=== PATIENT | male | born 2000 | race Caucasian/White ===

== ENCOUNTER 2020-10-07 21:51 | Emergency (ER) | payer SELFPAY ==
[2020-10-07] MEDS ORDERED: PENICILLIN G BENZATHINE 1.2 MILLION UNIT/2 ML DISP.SYRIN IM ONE (22:08)
[2020-10-07] MEDS ORDERED: AZITHROMYCIN 250 MG TABLET PO ONE (22:14)
[2020-10-07] MEDS ORDERED: CEFTRIAXONE INJ 250 MG VIAL IM ONE (22:14)
[2020-10-07] MEDS ORDERED: LIDOCAINE 1% INJ-PF (10 MG/ML) 30 ML SDV INJ ONE (22:14)
--- NOTE | 2020-10-07 22:18 | ER Document Report ---
ED GI/ - General Chief Complaint: STD Exposure Stated Complaint: POSS STD Time Seen by Provider: 10/07/20 22:07 Mode of Arrival: Ambulatory Information source: Patient Notes: 19-year-old male presented to ED for complaint of positive syphilis test when he donated blood. He states he was just told a couple days ago. He states he has had no rashes no soreness to his genitalia but he has had fatigue. He states he would also like to be tested for gonorrhea and chlamydia. He states he would like to be treated for those as well. He states he does have a history of depression and takes medications for the depression and hormone treatment to change from male to female. He states he has not yet had the surgery. He is alert oriented respirations regular nonlabored speaking in full sentences. He states he does smoke 1/2 pack a day does not drink or use any illicit drugs. Constitutional: Negative for fever. HENT: Negative for sore throat. Eyes: Negative for visual changes. Cardiovascular: Negative for chest pain. Respiratory: Negative for shortness of breath. Gastrointestinal: Negative for abdominal pain, vomiting or diarrhea. Genitourinary: Negative for dysuria. He states he is not having any urinary symptoms he is not having any discharge she is not having any sores or rash but the blood bank told him that he was positive for syphilis when they tested his blood that he donated. Musculoskeletal: Negative for back pain. Skin: Negative for rash. Neurological: Negative for headaches, weakness or numbness. 10 point ROS negative except as marked above and in HPI. PHYSICAL EXAMINATION: GENERAL: Well-appearing, well-nourished and in no acute distress. HEAD: Atraumatic, normocephalic. EYES: Pupils equal round extraocular movements intact, conjunctiva are normal. ENT: Nares patent NECK: Normal range of motion LUNGS: No respiratory distress Musculoskeletal: Normal range of motion NEUROLOGICAL: Normal speech, normal gait. PSYCH: Normal mood, normal affect. SKIN: Warm, Dry, normal turgor, no rashes or lesions noted. - HPI Patient complains to provider of: Other - States he was told by the blood bank he was positive for syphilis and wants to be treated and tested for other STDs Onset: Other - Couple days ago Quality of pain: No pain Pain Level: Denies Sexual history: Unprotected intercourse, Rectal penetration Associated symptoms: Other - States he was told he was positive for syphilis and wants to be tested for and treated for gonorrhea and chlamydia Exacerbated by: Denies Relieved by: Denies Similar symptoms previously: No Recently seen / treated by doctor: No - Related Data Allergies/Adverse Reactions: No Known Allergies Allergy (Unverified 10/07/20 22:05) Home Medications: states medication for depression, anxiety, and hormones for transgender Past Medical History - General Information source: Patient - Social History Smoking Status: Current Every Day Smoker Cigarette use (# per day): Yes - Half pack per day Smoking Education Provided: Yes - 3 minutes Frequency of alcohol use: None Drug Abuse: None Family History: Reviewed & Not Pertinent Patient has homicidal ideation: No - Past Medical History Cardiac Medical History: Reports: None Pulmonary Medical History: Reports: None EENT Medical History: Reports: None Neurological Medical History: Reports: None Endocrine Medical History: Reports: None Renal/ Medical History: Reports: None Malignancy Medical History: Reports None GI Medical History: Reports: None Musculoskeletal Medical History: Reports None Skin Medical History: Reports None Psychiatric Medical History: Reports: Hx Depression Traumatic Medical History: Reports: None Infectious Medical History: Reports: None Surgical Hx: Negative Past Surgical History: Reports: None Physical Exam - Vital signs Vitals: Temp Pulse Resp BP Pulse Ox 98.8 F 108 H 16 129/65 H 96 10/07/20 21:59 10/07/20 21:59 10/07/20 21:59 10/07/20 21:59 10/07/20 21:59 Course - Re-evaluation Re-evalutation: 10/08/20 00:32 Patient was treated with 2,400,000 units of penicillin G Cynthia benzathine IM for his positive test for syphilis at the blood bank. He stated that they told him that he needed to be treated right away. We also tested him for gonorrhea and chlamydia. His UA was negative for any acute UTI but it was sent for culture to ensure that everything is covered. He was instructed to call on Saturday for the results of his gonorrhea and chlamydia. Patient verbalized understanding and agreement with treatment plan and when he was discharged home. 10/08/20 00:33 - Vital Signs Vital signs: Temp Pulse Resp BP Pulse Ox 98.8 F 108 H 16 129/65 H 96 10/07/20 21:59 10/07/20 21:59 10/07/20 21:59 10/07/20 21:59 10/07/20 21:59 - Laboratory Laboratory results interpreted by me: 10/07/20 22:31 Urine Protein 30 H Urine Ketones TRACE H Urine Urobilinogen 4.0 H Ur Leukocyte Esterase TRACE H Discharge - Discharge Clinical Impression: Syphilis in male, STD exposure Condition: Stable Disposition: HOME, SELF-CARE Additional Instructions: You presented to ED today for a positive syphilis at the blood bank. You have been treated with penicillin G 2,400,000 units as per protocol for syphilis. You also requested that she be tested for GC and chlamydia. These take about 2 to 3 hours to run so you have been treated for these as well while you were here. You can call for the results of these tests on Saturday at [id number] the culture line. Have already been treated at this time. Penicillins The antibiotic you have received is a member of the penicillin family. This is a very useful class of antibiotics. The particular type of antibiotic chosen for you was determined by the nature of your problem. Penicillins are absorbed best when taken on an empty stomach, and should be taken either a half hour before or two hours after a meal. Some newer medicines of the penicillin class are better taken with food -- if this is the case, the pharmacist will label the medicine to alert you. Penicillins usually have no side effects. However, allergy to penicillins is common. If you have had an allergic reaction to any drug of the penicillin family, you should never take any other penicillin. Notify your doctor at once if you develop hives, itching, swelling, faintness, or shortness of breath. Less serious side effects can include nausea or diarrhea. Rocephin You have been given an injection of an antibiotic called Rocephin (ceftriaxone). Sometimes the injection must be combined with antibiotic pills. For some infections, such as an uncomplicated ear infection, Rocephin provides all the antibiotic that's needed. The antibiotic will be in your body for about two days. For serious infections, we usually repeat doses of Rocephin daily. Side effects are very unusual following a shot. Women may develop vaginal yeast infections, and babies can get yeast (thrush) in the mouth following the use of antibiotics. Contact your physician if you have symptoms with this medication. Allergy to this antibiotic can result in hives, wheezing, faintness, or itching. If symptoms of allergy occur, call the doctor at once. Azithromycin Azithromycin (Zithromax) is a broad spectrum antibiotic in the same class as erythromycin. It can treat a variety of bacterial infections, but is most frequently used for respiratory infections. Azithromycin is extremely long-lasting. It accumulates in body tissues and continues to kill bacteria for many days. In order to improve absorption, Azithromycin should be taken at least one hour before or two hours after a meal. It does not have the same strong tendency to upset the stomach as erythromycin and is usually very well tolerated. Patients who have had a rash or other true allergic reactions to erythromycin should not take this medication. Call if you develop gastrointestinal distress, severe diarrhea, rash, hives, itching, or shortness of breath. It is very important that you follow-up with a urologist to make sure that you are clear from your syphilis. FOLLOW-UP CARE: If you have been referred to a physician for follow-up care, call the physicians office for an appointment as you were instructed or within the next two days. If you experience worsening or a significant change in your symptoms, notify the physician immediately or return to the Emergency Department at any time for re-evaluation. Forms: Smoking Cessation Education Referrals: PERRY BRAVO MD [NO LOCAL MD] - Follow up as needed
[2020-10-07 23:55] LABS: APPEARANCE,URINE SLIGHTLY-CLOUDY; BILIRUBIN,URINE NEGATIVE (NEGATIVE); COLOR,URINE YELLOW; GLUCOSE, URINE NEGATIVE (NEGATIVE); KETONES,URINE TRACE mg/dL (NEGATIVE); LEUKOCYTE ESTERASE,URINE TRACE (NEGATIVE); NITRITE,URINE NEGATIVE (NEGATIVE); PROTEIN,URINE 30 mg/dL (NEGATIVE)
[2020-10-08 00:16] LABS: CHLAM PCR NOT DETECTED (NOT DETECT)
[2020-10-08 00:26] VITALS: BP 133/81
== END 2020-10-08 00:27 | disposition home or self-care (01) ==
LOC: ER 21:51
DX: A53.9 Syphilis, unspecified (principal); R53.83 Other fatigue; F17.210 Nicotine dependence, cigarettes, uncomplicated; F32.9 Major depressive disorder, single episode, unspecified; Z79.899 Other long term (current) drug therapy; Z20.2 Contact with and (suspected) exposure to infections with a predominantly sexual mode of transmission
CPT/HCPCS: 99284; 96372; 87086; 81001; 87491; 87591; J3490; J0561; J0696

== ENCOUNTER 2020-10-11 21:44 | Emergency (ER) | payer MEDICAID, OTHER ==
--- NOTE | 2020-10-11 22:24 | ER Document Report ---
ED Medical Screen (RME) - General Chief Complaint: Suicidal Ideation Stated Complaint: PSYCH Time Seen by Provider: 10/11/20 22:14 Notes: HPI: 19-year-old male presenting for suicidal ideation tonight. No new stressors. Patient states that he had thoughts of putting an extension cord around his throat and hanging himself. States 5 months ago he was seen for something similar and had exact same plan. Denies drugs or alcohol use. PHYSICAL EXAMINATION: Patient does make eye contact and is willing to interact. He does espouse active thoughts of harming himself. Lung sounds are clear to auscultation regular rate and rhythm I have greeted and performed a rapid initial assessment of this patient. A comprehensive ED assessment and evaluation of the patient, analysis of test results and completion of medical decision making process will be conducted by an additional ED providers. - Related Data Allergies/Adverse Reactions: No Known Allergies Allergy (Verified 10/09/20 22:57) Past Medical History - Social History Frequency of alcohol use: None Drug Abuse: None - Past Medical History Cardiac Medical History: Reports: Hx Hypertension Neurological Medical History: Reports: Hx Seizures Psychiatric Medical History: Reports: Hx Anxiety, Hx Depression, Hx Schizophrenia Physical Exam - Vital signs Vitals: Temp Pulse Resp BP Pulse Ox 98.0 F 92 16 145/76 H 95 10/11/20 22:10 10/11/20 22:10 10/11/20 22:10 10/11/20 22:10 10/11/20 22:10 Course - Vital Signs Vital signs: Temp Pulse Resp BP Pulse Ox 98.0 F 92 16 145/76 H 95 10/11/20 22:10 10/11/20 22:10 10/11/20 22:10 10/11/20 22:10 10/11/20 22:10
[2020-10-11 23:04] LABS: ABSOLUTE BASOPHILS # (AUTO) 0.1 10^3/uL (0.0-0.2); ABSOLUTE EOSINOPHILS # (AUTO) 0.4 10^3/uL (0.0-0.6); ABSOLUTE LYMPHOCYTES (AUTO) 3.2 10^3/uL (0.5-4.7); ABSOLUTE MONOCYTES (AUTO) 0.9 10^3/uL (0.1-1.4); ABSOLUTE NEUT (AUTO) 9.4 10^3/uL (1.7-8.2); BASOPHILS % (AUTO) 0.9 % (0-2); EOSINOPHILS % (AUTO) 2.6 % (0-6); HEMATOCRIT 47.8 % (37.9-51.0); LYMPHOCYTES % (AUTO) 22.9 % (13-45); MEAN CORPUSCULAR HEMOGLOBIN 29.1 pg (27.0-33.4); MEAN CORPUSCULAR HGB CONC 33.5 g/dL (32.0-36.0); MEAN CORPUSCULAR VOLUME 87 fl (80-97); MONOCYTES % (AUTO) 6.4 % (3-13); PLATELET COUNT 168 10^3/uL (150-450); RED BLOOD COUNT 5.49 10^6/uL (4.35-5.55); RED CELL DISTRIBUTION WIDTH 12.9 % (11.5-14.0); SEGMENTED NEUTROPHILS % (AUTO) 67.2 % (42-78); TOTAL CELLS COUNTED % (AUTO) 100 %
[2020-10-11 23:10] LABS: APPEARANCE,URINE CLEAR; BILIRUBIN,URINE NEGATIVE (NEGATIVE); COLOR,URINE YELLOW; GLUCOSE, URINE NEGATIVE (NEGATIVE); KETONES,URINE NEGATIVE (NEGATIVE); LEUKOCYTE ESTERASE,URINE NEGATIVE (NEGATIVE); NITRITE,URINE NEGATIVE (NEGATIVE); PROTEIN,URINE NEGATIVE (NEGATIVE); URINE SPECIFIC GRAVITY 1.023; UROBILINOGEN,URINE NEGATIVE mg/dL (<2.0)
[2020-10-11 23:27] LABS: URINE AMPHETAMINES SCREEN NEGATIVE; URINE BARBITURATES SCREEN NEGATIVE; URINE BENZODIAZEPINES SCREEN NEGATIVE; URINE COCAINE SCREEN NEGATIVE; URINE MARIJUANA (THC) SCREEN NEGATIVE; URINE METHADONE SCREEN NEGATIVE; URINE PHENCYCLIDINE SCREEN NEGATIVE
[2020-10-11 23:30] LABS: ALBUMIN 4.7 g/dL (3.5-5.0); ALKALINE PHOSPHATASE 64 U/L (38-126); ANION GAP 7 (5-19); ASPARTATE AMINO TRANSFERASE 20 U/L (17-59); BILIRUBIN,DIRECT 0.1 mg/dL (0.0-0.4); BILIRUBIN,TOTAL 0.3 mg/dL (0.2-1.3); BLOOD UREA NITROGEN 12 mg/dL (7-20); CARBON DIOXIDE 29 mmol/L (22-30); CHLORIDE 102 mmol/L (98-107); GLUCOSE 92 mg/dL (75-110); POTASSIUM 4.8 mmol/L (3.6-5.0); TOTAL PROTEIN 7.4 g/dL (6.3-8.2)
[2020-10-11 23:32] LABS: ACETAMINOPHEN < 10 ug/mL (10-30); ALCOHOL < 10 mg/dL (NONE DETECTED); SALICYLATE < 1.0 mg/dL (2.0-20.0)
[2020-10-11] MEDS ORDERED: ACETAMINOPHEN 325 MG TABLET PO ONE (23:49)
[2020-10-11] MEDS ORDERED: NICOTINE 14 MG/24 HR PATCH.TD24 TD ONE (23:53)
--- NOTE | 2020-10-11 23:55 | ER Document Report ---
ED General <CRUZ CRUZ - Last Filed: 10/12/20 16:33> - Related Data Home Medications: Patient is unsure of her medications, states they were prescribed in [place]. She states she is currently on medications for depression, anxiety, and to aid in her transition <JO SILVA - Last Filed: 10/13/20 01:58> - General Chief Complaint: Suicidal Ideation Stated Complaint: PSYCH Time Seen by Provider: 10/11/20 22:14 Primary Care Provider: [facility] [Outside] - Follow up as needed [facility] [Outside] - Follow up as needed [facility] [Outside] - Follow up as needed - HPI Notes: Patient is a 19-year-old male, currently in the midst of transition to female, who presents to the emergency department for evaluation of suicidal ideation. She states this is been ongoing for about a week. Is because she and her boyfriend broke up. She states she is thinking about hanging herself with an ex tension cord. She reports that she has tried to kill herself in the past. Se denies any homicidal ideation. No visual or auditory hallucination. She does have a history of self-harm. In fact, the patient was found here in the department, had located a butterfly needle, and was poking into her own forearm. She states she was doing this in an effort to self-harm, states that that soothes her. Patient also states that she has tooth pain. She has a tooth that is chipped, states it has been hurting more over the last several days. No fevers or chills. No swelling. No drainage. No difficulty speaking or swallowing. (JO SILVA) - Related Data Allergies/Adverse Reactions: No Known Allergies Allergy (Verified 10/09/20 22:57) Past Medical History - General Information source: Patient - Social History Smoking Status: Current Every Day Smoker Frequency of alcohol use: None Drug Abuse: None Family History: Reviewed & Not Pertinent Patient has homicidal ideation: No - Past Medical History Cardiac Medical History: Reports: Hx Hypertension Neurological Medical History: Reports: Hx Seizures Psychiatric Medical History: Reports: Hx Anxiety, Hx Depression, Hx Schizophrenia <JO SILVA - Last Filed: 10/13/20 01:58> Review of Systems - Review of Systems Constitutional: No symptoms reported EENT: See HPI Cardiovascular: No symptoms reported Respiratory: No symptoms reported Gastrointestinal: No symptoms reported Genitourinary: No symptoms reported Musculoskeletal: No symptoms reported Skin: See HPI Neurological/Psychological: See HPI <JO SILVA - Last Filed: 10/13/20 01:58> Physical Exam <JO SILVA - Last Filed: 10/13/20 01:58> - Vital signs Vitals: Temp Pulse Resp BP Pulse Ox 98.0 F 92 16 145/76 H 95 10/11/20 22:10 10/11/20 22:10 10/11/20 22:10 10/11/20 22:10 10/11/20 22:10 - Notes Notes: Is a 19-year-old, who appears her stated age, no acute distress. Vital signs reviewed, please refer to chart. Head is normocephalic, atraumatic. Pupils equal round, reactive to light. Oral mucosa is moist. Second right maxillary molar shows a small defect consistent with chipping, but no gingival edema or erythema. No facial edema or erythema. No sublingual swelling. No pharyngeal edema noted. Neck is supple without meningismus. Heart is regular rate and rhythm. Lungs are clear to auscultation bilaterally. Abdomen is soft, nontender, normoactive bowel sounds throughout. Extremities without cyanosis, clubbing. Posterior calves are nontender. Peripheral pulses are equal. Skin is warm and dry. Bandages in place over multiple puncture wounds noted to the forearms, self-inflicted. Patient is awake, alert, neurological exam is nonfocal. Patient maintains good eye contact, mildly depressed affect. (ASHLYNNATASHAJO Schmitz) Course - Laboratory Results Result Diagrams: 10/11/20 22:51 10/11/20 22:51 <CRUZ CURZ - Last Filed: 10/12/20 16:33> - Laboratory Results Result Diagrams: 10/11/20 22:51 10/11/20 22:51 Critical Laboratory Results Reviewed: No Critical Results - Radiology Results Critical Radiology Results Reviewed: No Critical Results <JO SILVA - Last Filed: 10/13/20 01:58> - Re-evaluation Re-evalutation: 10/11/20 23:54 Patient presents emergency department for evaluation of suicidal ideation as well as dental pain. I do not see any signs of significant abscess or infection in this right maxillary molar at this time. Patient is given Tylenol. Otherwise, the patient has no medical complaints. Patient is medically cleared for psychosocial evaluation. (JO SILVA) - Vital Signs Vital signs: Temp Pulse Resp BP Pulse Ox 98.8 F 73 22 H 141/68 H 99 10/12/20 16:55 10/12/20 16:55 10/12/20 16:55 10/12/20 16:55 10/12/20 16:55 - Laboratory Results Laboratory Results Interpreted: 10/11/20 10/11/20 22:51 22:51 WBC 14.0 H Absolute Neuts (auto) 9.4 H Salicylates < 1.0 L Acetaminophen < 10 L - EKG Interpretation by Me Additional EKG results interpreted by me: 10/11/20 23:55 Sinus mechanism with a rate of 76 bpm. Normal axis and intervals. No acute ST changes concerning for ischemia or infarction. (JO SILVA) Discharge <CRUZ CRUZ - Last Filed: 10/12/20 16:33> <JO SILVA - Last Filed: 10/13/20 01:58> - Discharge Clinical Impression: Suicidal ideation Condition: Stable Disposition: HOME, SELF-CARE Instructions: Toothache ([facility]) Additional Instructions: You have been evaluated by both medical and behavioral health teams for passive suicidal ideation. You have been deemed appropriate for discharge. While in the emergency department you received the following services/or had access to: Medical screening and assessment, nursing services, dietary services, pharmacological services, one-on-one counseling and/or psychotherapy, environmental services, and continuous observation by a patient radiation safety officer. You should continue your home medications as prescribed and follow up with your medication provider. Suicidal Ideation Suicidal ideation is a common medical term for thoughts about suicide, which may be as detailed as a formulated plan, without the suicidal act itself. Although most people who undergo suicidal ideation do not commit suicide, some go on to make suicide attempts. The range of suicidal ideation varies greatly from fleeting to detailed planning, role playing, and unsuccessful attempts. While thoughts about suicide are common, most people do not carry out serious actions to commit suicide. However, based upon your evaluation and discussion with you, we believe you are not currently at risk to act upon your thoughts of suicide. Therefore, you will be discharged home. Follow up care: You are currently involved in medication management with your doctor in [place] and are highly recommended to continue outpatient services. You have been given a community outpatient referral list to include phone numbers for [facility] and [facility]. You have also been given information for [facility]. You have been given psychoeducation on positive coping skills. You and your mother are in work getting you back into your long term in [place] and when re-accepted, your mother will be purchasing you a plane ticket to [place]. If you experience worsening or a significant change in your symptoms, notify the physician imm ediately, utilize mobile crisis, or return to the Emergency Department at any time for re-evaluation. Dr. Davison was consulted to care management of this patient; attending physicians in agreement with recommendations and disposition. Referrals: [facility] [Outside] - Follow up as needed [facility] [Outside] - Follow up as needed [facility] [Outside] - Follow up as needed
--- NOTE | 2020-10-12 14:48 | ER Document Report ---
Doctor's Note Notes: Patient is a 19 y/o male to female trans individual who presented for suicidal ideation and was placed on IVC paperwork. Patient was medically cleared based on blood work. 10/12/20 11:00 Psych plans to rescind IVC papers and contact the patient's mother to help establish support for the patient. Plan to provide resources and outpatient follow-up. 10/12/20 13:15 Patient reassessed and she has no complaints at this time. She denies chest pain, shortness of breath and abdominal pain. PHYSICAL EXAMINATION: GENERAL: Well-appearing, well-nourished and in no acute distress. HEAD: Atraumatic, normocephalic. EYES: sclera anicteric, conjunctiva are normal. ENT: Moist mucous membranes. NECK: Normal range of motion LUNGS: Normal work of breathing EXTREMITIES: no pitting or edema. No cyanosis. NEUROLOGICAL: No focal neurological deficits. Moves all extremities spontaneously and on command. PSYCH: Normal mood, normal affect. SKIN: Warm, Dry, normal turgor, no rashes or lesions noted. 10/12/20 14:00 Psych is still working on getting a hold of the patient's mother. 10/12/20 16:39 Psych has rescinded the IVC and has cleared the patient. They were able to get a hold of the patient's mother and the plan is to fly her home to [place] once she can get her placement in her old [facility]. In the meantime, patient will go live with a friend who is local and resources will be given. Patient understands and is in agreement with the plan. Patient is safe for discharge home as she is both cleared medically and by psych.
--- NOTE | 2020-10-12 15:00 | PSYCHOLOGICAL NOTE ---
Psych Note - Psych Note Date seen by psych provider: 10/12/20 Time seen by psych provider: 12:08 Psych Note: Collateral Information: Tried calling patient's mother Eugenio ([phone]) at 1208, no answer, left general voice mail with call back information. Called again at 1228, no answer. Mother returned call from [phone]. She confirmed she is going to get patient a plane ticket back to [place], she is trying to figure out a place for him to stay when he gets back there, she said the [facility] willing to take him back, it may be a different home but the same program, she noted he had 6 months from time of leaving (it has already been 4 months), and she is trying to coordinate with the waiver manager of environmental services. Patient has [place] Medicaid. She noted patient has been staying with a friend locally. Forwarded call to the [facility]ician for further information.
[2020-10-12 16:58] VITALS: BP 141/68
--- NOTE | 2020-10-12 16:58 | PSYCHOLOGICAL NOTE ---
Psych Note - Psych Note Date seen by psych provider: 10/12/20 Time seen by psych provider: 10:58 Psych Note: Reason for Consult: suicidal ideation Consent permissions: motherEugenio, [id number] Patient is a 19 year old male who was admitted to the ED via voluntarily for suicidal ideations and put under a 24 hour petition. Patient initially reports suicidal ideations, with a plan to tie a cord around neck and choke self. Patient later denies suicidal ideation, plan, and intent and states, I feel depressed, but I would never actually attempt to kill myself. 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 Patient reports living in [place] in a assisted until moving to [place] on 09/03/2020. Patient and boyfriend recently broke up and patient reports depression and passive suicidal ideation over the past week. Patient reports medication compliance and still has medications from [place]. Patient does report running out of night medications 2 nights ago. Patient is unable to report medications prescribed. Patient reports plan is to move back to [place] and go back to assisted, [facility]. Patient shows future forward goal oriented thinking as patient talks about going back to assisted, plans for mother to purchase plane ticket, and continuing medication management in [place]. Collateral: Mother, Eugenio, called back at [phone]. Mother reports it is in work for patient to return to assisted in [place]. Mother reports they were holding patients bed for 6 months when patient left [place], thinking patient would return. Mother reports working with the [employer] location manager, Philip, however she has not been answering phone and voicemail box has been full. Mother states patient ran out of some medications, but cannot report any medications prescribed to patient. Mother reports being worried about patients depression and feels as if medications might not be working. Mother reports plans to buy plane ticket for patient to [place] when accepted back into assisted. She reports patient will continue to stay with friend, Jennie, in [place] until placement in [place] is re- secured. Patient was alert and oriented to self, person, place, time and situation. Mood was euphoric with congruent affect. Patient denies current suicidal and homicidal ideation, plan, and intent. Patient did not appear to be responding to internal stimuli as evidenced by fair eye contact and answering questions appropriately when addressed. Thought processes are linear and organized. Conversational speech was within normal limits for rate, tone and prosody. Intellectual abilities are estimated to be average. Insight, judgment and impulse control were fair as evidenced by calling an [employer] and coming to the ED when passive Si arise. Patient engages appropriately. Patient demonstrates future forward goal oriented thinking as patient discusses wanting to go back to [place] and a assisted and plans to stay with Patience until that occurs. Clinical Presentation: suicidal ideation, depression IVC Criteria per [place] GS 122C Dangerous to others Within the relevant past the individual No has inflicted or attempted to inflict or threatened to inflict serious bodily harm on another AND No that there is a reasonable probability that this conduct will be repeated. OR No has acted in such a way as to create a substantial risk of serious bodily harm to another AND No that there is a reasonable probability that this conduct will be repeated. OR No has engaged in extreme destruction of property AND NO that there is a reasonable probability that this conduct will be repeated. Previous episodes of dangerousness to others, when applicable, may be considered when determining reasonable probability of future dangerous conduct. Clear, cogent, and convincing evidence that an individual has committed a homicide in the relevant past is prima facie evidence of dangerousness to others. Dangerous to self Within the relevant past the individual has done any of the following: acted in such a way as to show ALL of the following: No The individual would be unable without care, supervision, and the continued assistance of others not otherwise available, to exercise self- control, judgment, and discretion in the conduct of the individual's daily responsibilities and social relations or to satisfy the individual's need for nourishment, personal or medical care, mcfp, or self-protection and safety. AND No There is a reasonable probability of the individual suffering serious physical debilitation within the near future unless adequate treatment is given. A showing of behavior that is grossly irrational, of actions that the individual is unable to control, of behavior that is grossly inappropriate to the situation, or of other evidence of severely impaired insight and judgment shall create a prima facie inference that the individual is unable to care for himself or herself. OR yes has attempted suicide or threatened suicide made passive SI, denies plan and intent AND No that there is a reasonable probability of suicide unless adequate treatment is given Patient denies plan and intent and reports medication compliance (however ran out of some medications two days ago) OR No has mutilated himself or herself or attempted to mutilate himself or herself AND No that there is a reasonable probability of serious self-mutilation unless adequate treatment is given. NOTE: Previous episodes of dangerousness to self, when applicable, may be considered when determining reasonable probability of physical debilitation, suicide, or self-mutilation. Impression\plan: Patient is cleared from psychiatric services. Patient is recommended to rescind IVC. Patient was admitted to the ED for passive suicidal ideation and denies plan and intent. Patient was seen in the ED 2 days prior for passive suicidal ideation and discharged home with resources. Patient and mother are planning to get patient back into [place] assisted where patient left a few weeks prior. Patient reports medication compliance, however he ran out of his night medications. Mother and patient cannot recall medications patient is prescribed. Patient reports a recent break up with boyfriend and feeling depressed with intermittent suicidal ideation. Patient plans to continue to stay with his friend, Patience, until re-accepted to his assisted in [place]. At this time, patients mother plans to purchase his plane ticket back to [place]. Patient was given community resource sheet for outpatient providers in the area and mobile crisis, [facility] and [facility]. Patient was highly recommended to utilize mobile crisis or call [place] [facility] to reserve a bed if patient begins to feel as if he cannot keep himself safe. Psychoeducation was provided to patient about positive coping skills and patient was able to identify a few commonly used coping skills. Dr. Davison was consulted to care management of this patient; attending physicians in agreement with recommendations and disposition.
--- NOTE | 2020-10-12 18:44 | EKG REPORT ---
SEVERITY:- NORMAL ECG - SINUS RHYTHM : Confirmed by: Willi Holloway 12-Oct-2020 18:44:21
== END 2020-10-12 16:58 | disposition home or self-care (01) ==
LOC: ER 21:44
DX: R45.851 Suicidal ideations (principal); I10 Essential (primary) hypertension; K08.9 Disorder of teeth and supporting structures, unspecified; F17.200 Nicotine dependence, unspecified, uncomplicated
CPT/HCPCS: 93005; 99285; 36415; 80307 ×4; 85025; 80053; 81001; 93010; J3490 ×2

== ENCOUNTER 2020-10-24 20:24 | Emergency (ER) | payer MEDICAID ==
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
--- NOTE | 2020-10-24 21:48 | ER Document Report ---
ED Psych Disorder / Suicide - General Chief Complaint: Psych Problem Stated Complaint: PSYCH PROBLEM Time Seen by Provider: 10/24/20 20:36 Mode of Arrival: Ambulatory Notes: Patient is a 20-year-old male who is currently in the middle of gender transformation to female who presents emergency department with statements of being suicidal to 911. Patient reports that they called 911 and told them that they were suicidal to get a ride over here to the hospital. Denies any actual suicidal or homicidal thoughts. Patient states that they just wanted to "to get out of the cold." States that he does have a place to go. States that the patient advocate upfront gave them information on shelters in the area. Patient reports that they do not want to hurt himself or anyone else. Denies any new altercations. Denies any other symptoms. - Related Data Allergies/Adverse Reactions: No Known Allergies Allergy (Verified 10/09/20 22:57) Past Medical History - General Information source: Patient - Social History Smoking Status: Current Some Day Smoker Chew tobacco use (# tins/day): No Frequency of alcohol use: Occasional Drug Abuse: None Family History: Reviewed & Not Pertinent Patient has homicidal ideation: No - Past Medical History Cardiac Medical History: Reports: Hx Hypertension Neurological Medical History: Reports: Hx Seizures Psychiatric Medical History: Reports: Hx Anxiety, Hx Depression, Hx Schizophrenia Review of Systems - Review of Systems Notes: REVIEW OF SYSTEMS: CONSTITUTIONAL : Denies recent illness. Denies recent unintentional weight loss. Denies fever, chills, or sweats. EENT: Denies eye, ear, throat, or mouth pain, discharge, or symptoms. Denies nasal or sinus congestion. CARDIOVASCULAR: Denies chest pain. RESPIRATORY: Denies shortness of breath, cough, congestion, difficulty breathing, or wheezing. GASTROINTESTINAL: Denies nausea, vomiting, and diarrhea. Denies abdominal pain. Denies constipation. GENITOURINARY: Denies difficulty urinating, burning, blood in urine, urgency or frequency. MUSCULOSKELETAL: Denies neck and back pain. Denies joint pain or swelling. SKIN: Denies rash, itchiness, or lesions HEMATOLOGIC : Denies easy bruising or bleeding. LYMPHATIC: Denies swollen, painful, enlarged glands. NEUROLOGICAL: Denies no numbness or tingling denies weakness. Denies headache. Denies altered mental status. Denies alteration in speech. PSYCHIATRIC: See HPI. All other systems reviewed and negative. Physical Exam - Vital signs Vitals: Temp Pulse Resp BP Pulse Ox 97.8 F 101 H 20 132/72 H 99 10/24/20 20:25 10/24/20 20:25 10/24/20 20:25 10/24/20 20:25 10/24/20 20:25 - Notes Notes: PHYSICAL EXAMINATION: GENERAL: Appears well, healthy, well-nourished, no acute distress. HEAD: Normocephalic, atraumatic. EYES: PERRL, conjunctiva normal, all extraocular movements intact, sclera nonicteric ENT: Moist mucous membranes. NECK: Supple, no noticeable swelling, redness, rash. Normal range of motion. LUNGS: Equal breath sounds bilaterally and clear to auscultation. No wheezes rales or rhonchi. CARDIOVASCULAR: S1-S2, regular rate, regular rhythm. Radial pulses 2+, normal. ABDOMEN: Normoactive bowel sounds. Soft, nontender, no guarding, no rebound tenderness, and no masses palpated. EXTREMITIES: Normal strength and range of motion, no pitting or edema. No cyanosis. NEUROLOGICAL: Moves all extremities upon command. Strength 5/5 in all extremities. PSYCH: Normal mood, normal affect. SKIN: Warm, dry. No rash, lesions, ulcerations noted. Normal skin turgor. Course - Re-evaluation Re-evalutation: 10/24/20 22:58 Discussed this case with my attending, Dr. Fonseca and since the patient is not suicidal or homicidal and just actually truly wanted a ride over here, we will let patient go. They do have information on homeless shelters here in the area. Patient is alert and oriented. They are able to make their own decisions. Follow-up precautions were given. Verbal discharge instructions were given to the patient. They verbalized understanding. They are stable for discharge. - Vital Signs Vital signs: Temp Pulse Resp BP Pulse Ox 97.8 F 90 20 128/67 H 99 10/24/20 20:25 10/24/20 23:11 10/24/20 23:11 10/24/20 23:11 10/24/20 23:11 - Laboratory Results Critical Laboratory Results Reviewed: No Critical Results - Radiology Results Critical Radiology Results Reviewed: No Critical Results Discharge - Discharge Clinical Impression: Homelessness Condition: Stable Disposition: HOME, SELF-CARE Additional Instructions: You are seen today in the emergency department for getting a ride over here to the emergency department. I highly suggest that you do not call 911 anymore to get a ride over here. If you truly do end up having any thoughts of suicide or wanting to hurt anyone else, please return to the emergency department immediately.
[2020-10-24 23:13] VITALS: BP 128/67
== END 2020-10-24 23:12 | disposition home or self-care (01) ==
LOC: ER 20:24
DX: Z59.0 Homelessness (principal); F17.200 Nicotine dependence, unspecified, uncomplicated
CPT/HCPCS: 99283

== ENCOUNTER 2020-10-25 05:33 | Emergency (ER) | payer MEDICAID ==
--- NOTE | 2020-10-25 07:58 | ER Document Report ---
ED Neck/Back Problem - General Chief Complaint: Back Pain Stated Complaint: BACK PAIN Notes: 10/25/20 07:29 - ED Nursing Note by RAMESH RENAE Acct Num: [id number] : 2000 Patient Age: 20 pt reports he has been experiencing chronic back pain for about 3 years, pt twisted around 0300this morning and a sharp pain occoured in lower back. pt reports NKDA, stated no medical hx but was recently diagnosed with depression and anxiety, precriptions have no yet been filled. pt stated NADN WCTM Initialized on 10/25/20 07:29 - END OF NOTE 10/25/20 06:10 - ED Nursing Note by GINA MICHAELS Acct Num: [id number] : 2000 Patient Age: 20 pt awoke this am and has pain in lower back. pt denies any injury or trauma to the area. pt has even gait no limping noted. pain does go down legs at times. Initialized on 10/25/20 06:10 - END OF NOTE MY NOTES 20-year-old male "with female characteristics of soft-spoken voice and thinning hair" originally from [place] with a history of syphilis and that was treated when 19 years old denies any history of chlamydia but does admit to low back pain for the last several years. Patient reports awakening early this morning around 03 100 with severe back pain; the reported back pain is 5 out of 10. Patient is to receive a COVID-19 checkup at [facility] after this ER visit because it is required for the homeless [facility]ci. Patient reports when you tight he was on Flexeril which worked very well for low back pain. There is denial of any ankylosing spondylitis or chlamydia in the past only syphilis. Patient reports there is no trauma to the low back or upper back or any cough at this time. Patient has no allergies no skin rash no nuchal rigidity no cephalgia no chest pain no cough - Related Data Allergies/Adverse Reactions: No Known Allergies Allergy (Verified 10/09/20 22:57) Past Medical History - General Information source: Patient - Social History Smoking Status: Current Every Day Smoker Cigarette use (# per day): Yes Chew tobacco use (# tins/day): No Smoking Education Provided: Yes Frequency of alcohol use: Occasional Drug Abuse: None Lives with: Family Family History: Reviewed & Not Pertinent Patient has suicidal ideation: No Patient has homicidal ideation: No - Past Medical History Cardiac Medical History: Reports: Hx Hypertension Neurological Medical History: Reports: Hx Seizures Psychiatric Medical History: Reports: Hx Anxiety, Hx Depression, Hx Schizophrenia Review of Systems - Review of Systems Constitutional: No symptoms reported EENT: No symptoms reported Cardiovascular: No symptoms reported Respiratory: No symptoms reported Gastrointestinal: No symptoms reported Genitourinary: No symptoms reported Male Genitourinary: No symptoms reported Musculoskeletal: See HPI, Back pain Skin: No symptoms reported Hematologic/Lymphatic: No symptoms reported Neurological/Psychological: No symptoms reported -: Yes All other systems reviewed and negative Physical Exam - Vital signs Vitals: Temp Pulse Resp BP Pulse Ox 99.3 F 107 H 16 146/76 H 100 10/25/20 06:06 10/25/20 06:06 10/25/20 06:06 10/25/20 06:06 10/25/20 06:06 Interpretation: Hypertensive, Tachycardic - General General appearance: Appears well, Alert - HEENT Head: Normocephalic, Atraumatic Eyes: Normal Pupils: PERRL - Respiratory Respiratory status: No respiratory distress Chest status: Nontender Breath sounds: Normal Chest palpation: Normal - Cardiovascular Rhythm: Regular Heart sounds: Normal auscultation Murmur: No - Abdominal Inspection: Normal Distension: No distension Bowel sounds: Normal Tenderness: Nontender Organomegaly: No organomegaly - Rectal Prostate: Other - Deferred - Genitourinary Scrotum: Other - Deferred - Back Back: Tender - LS spine tenderness on palpation without radiation - Extremities General upper extremity: Normal inspection, Nontender, Normal color, Normal ROM, Normal temperature General lower extremity: Normal inspection, Nontender, Normal color, Normal ROM, Normal temperature, Normal weight bearing. No: Soraida's sign - Neurological Neuro grossly intact: Yes Cognition: Normal Orientation: AAOx4 Shel[place] Coma Scale Eye Opening: Spontaneous Derrell Coma Scale Verbal: Oriented [place] Coma Scale Motor: Obeys Commands Shel[place] Coma Scale Total: 15 Speech: Normal Motor strength normal: LUE, RUE, LLE, RLE Sensory: Normal - Psychological Associated symptoms: Normal affect, Normal mood - Skin Skin Temperature: Warm Skin Moisture: Dry Skin Color: Normal Course - Vital Signs Vital signs: Temp Pulse Resp BP Pulse Ox 99.3 F 107 H 16 146/76 H 100 10/25/20 06:06 10/25/20 06:06 10/25/20 06:06 10/25/20 06:06 10/25/20 06:06 - Laboratory Results Critical Laboratory Results Reviewed: No Critical Results Attending or Supervising Physician who Reviewed Labs: AARON MCLAIN JR - Radiology Results Radiology Results Interpreted: 10/25/20 08:59 Dr. Alves radiologist read these x-rays in ED Critical Radiology Results Reviewed: No Critical Results Attending or Supervising Physician who Reviewed Radiology: AARON MCLAIN JR Critical Care Note - Critical Care Note Comments: I informed patient of his negative results on x-ray. Discharge - Discharge Clinical Impression: COVID-19 virus RNA test result unknown Back pain Qualifiers: Back pain location: low back pain Chronicity: acute Back pain laterality: midline Sciatica presence: without sciatica Qualified Code(s): M54.5 - Low back pain Condition: Stable Disposition: HOME, SELF-CARE Additional Instructions: Follow-up with [facility] for your COVID-19 test today and get medicines filled at the pharmacy and return to ER as needed avoid bending lifting or twisting until seen by PMD or by orthopedics Dr. Sanon who is on- call today. Prescriptions: Doxycycline Monohydrate 100 mg PO BID #20 capsule Cyclobenzaprine HCl [Flexeril 10 mg Tablet] 10 mg PO TIDP PRN #15 tab PRN Reason:
--- NOTE | 2020-10-25 08:49 | RADIOLOGY REPORT (SQ) ---
EXAM DESCRIPTION: L SPINE 2 VIEWS IMAGES COMPLETED DATE/TIME: 10/25/2020 8:42 am REASON FOR STUDY: lbp COMPARISON: None. NUMBER OF VIEWS: Three views. TECHNIQUE: AP, lateral and sacral radiographic images acquired of the lumbar spine. LIMITATIONS: None. FINDINGS: MINERALIZATION: Normal. SEGMENTATION: Normal. No transitional anatomy. ALIGNMENT: Normal. VERTEBRAE: Maintained height. No fracture or worrisome bone lesion. DISCS: Preserved height. No significant osteophytes or end plate irregularity. POSTERIOR ELEMENTS: Pedicles and facets are intact. No pars defect or posterior arch defects. HARDWARE: None in the spine. PARASPINAL SOFT TISSUES: Normal. PELVIS: Intact as visualized. No fractures or worrisome bone lesions. SI joints intact. OTHER: No other significant finding. IMPRESSION: NORMAL 3 VIEW LUMBAR SPINE. TECHNICAL DOCUMENTATION: JOB ID: [id number] [employer]- All Rights Reserved Reading location - IP/workstation name: [email or web address]
--- NOTE | 2020-10-25 08:50 | RADIOLOGY REPORT (SQ) ---
EXAM DESCRIPTION: CHEST SINGLE VIEW IMAGES COMPLETED DATE/TIME: 10/25/2020 8:42 am REASON FOR STUDY: lumbar pain COMPARISON: None. EXAM PARAMETERS: NUMBER OF VIEWS: One view. TECHNIQUE: Single frontal radiographic view of the chest acquired. RADIATION DOSE: NA LIMITATIONS: None. FINDINGS: LUNGS AND PLEURA: No opacities, masses or pneumothorax. No pleural effusion. MEDIASTINUM AND HILAR STRUCTURES: No masses. Contour normal. HEART AND VASCULAR STRUCTURES: Heart normal in size. Normal vasculature. BONES: No acute findings. HARDWARE: None in the chest. OTHER: No other significant finding. IMPRESSION: NO ACUTE RADIOGRAPHIC FINDING IN THE CHEST. TECHNICAL DOCUMENTATION: JOB ID: [id number] 2010 [email or web address]- All Rights Reserved Reading location - IP/workstation name: [email or web address]
[2020-10-25 09:18] VITALS: BP 123/73
== END 2020-10-25 09:18 | disposition home or self-care (01) ==
LOC: ER 05:33
DX: G89.29 Other chronic pain (principal); M54.5 Low back pain; Z20.828 Contact with and (suspected) exposure to other viral communicable diseases; Z59.0 Homelessness; F17.210 Nicotine dependence, cigarettes, uncomplicated; I10 Essential (primary) hypertension
CPT/HCPCS: 71045; 72100; 99284